=== PATIENT | male | born 1955 | race Caucasian/White ===

== ENCOUNTER 2018-05-23 07:45 | Inpatient (IN) | payer BC ==
--- NOTE | 2018-05-18 17:56 | MH ---
cc: Jose Roman MD DATE OF ADMISSION: 05/23/2018 SCHEDULED ADMISSION: 05/23/2018 PREOPERATIVE DIAGNOSIS: Severe osteoarthritis, left knee. HISTORY OF PRESENT ILLNESS: The patient is a 62-year-old white male who has experienced at least a year history of pain involving his left knee. He had noted the gradual onset of his symptoms unrelated to injury or unusual activity. He previously was seen by his primary care physician, Dr. Natasha Mondragon, who completed x-ray studies which identified an arthritic condition involving his left knee and, at that time, the patient did conformed to conservative management, which included taking Tylenol and ice application. He apparently was discouraged initially from utilizing any anti-inflammatory medication based upon abnormal lab studies reflecting his kidney function, as well as an elevated potassium. He had been aware of generalized swelling about his left knee with frequent a clicking sensation when he presented to the office in May of this past year. At that time, x-ray studies revealed obvious degenerative changes with [id number] apposition about the medial compartment associated with a varus deformity of approximately 15 degrees magnitude. Findings and treatment options were reviewed with the patient at that time. The pros and cons of continued conservative management versus operative intervention that would involve a total knee arthroplasty were outlined in detail. Emphasis was made regarding the fact that the decision to proceed with surgery would be left entirely to the patient's discretion. At that time, the patient elected to continue with conservative management utilizing medication as prescribed by his primary care physician, as well as application of Aspercreme versus Biofreeze. He was also prescribed a medial offloading brace and would thereafter follow on an outpatient basis. With the passage of time, the patient became progressively more incapacitated with pain that began to interfere with all weightbearing activities. 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 He returned to the office in more recent followup, indicating he was becoming progressively more incapacitated. 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 His current x-ray studies revealed severe varus deformity about the left knee, measuring almost 30 degrees in magnitude, with [id number] apposition about the medial compartment and secondary involvement of the patellofemoral articulation. Once again, treatment options were reviewed. At that time, the patient felt that he was ready to proceed with surgery as had previously been discussed and in compliance with his wishes, he was scheduled for admission at this time in order that the above be accomplished. PAST MEDICAL HISTORY, HOSPITALIZATIONS AND SURGERIES: Have included lumbar laminectomy and fusion with instrumentation, appendectomy, colonoscopy and medical evaluation for malaise for which apparently no specific diagnosis was ever rendered. The patient's medical illnesses include hypertension, elevated cholesterol. CURRENT MEDICATIONS: He takes an 81 mg aspirin tablet daily, atenolol 50 mg daily, atorvastatin 20 mg at bedtime, Cialis 5 mg daily p.r.n., diclofenac 75 mg daily, diltiazem 120 mg daily, gabapentin 300 mg twice daily, hydralazine 10 mg 3 times daily, a multivitamin tablet daily, Tylenol Extra Strength 2 tablets p.r.n. and vitamin C 500 mg daily. He has also used Voltaren gel on a regular basis and fish oil. ALLERGIES: THE PATIENT INDICATES A DRUG ALLERGY TO SULFA, WHICH HAS BEEN ASSOCIATED WITH RASH FORMATION. REVIEW OF SYSTEMS: He does wear glasses. Denies headaches, seizure or syncope. No sinus congestion or epistaxis. Auditory acuity intact. No tinnitus. No bleeding gums or dysphagia. Denies cough, shortness of breath, upper respiratory infection, pneumonia or tuberculosis. There is a positive history of sleep apnea for which he does utilize CPAP. No angina or heart disease. Appetite is good. Bowel movements are regular. No hepatitis, gallbladder disease, ulcers or hemorrhoids. He had a urinary tract infection as a youngster with no sequelae. No prostate disease. No history of fractures. No psychiatric illness. His remaining review of systems is unremarkable and noncontributory. FAMILY HISTORY: The patient has been 39 years. His is 60 years of age and described as being in good health. One son and 1 daughter indicated to be in good health. FAMILY HISTORY: Otherwise unremarkable. 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 He completed a college education. He denies active use of tobacco for the past 2 years, but had been an intermittent smoker of both cigarettes and cigars for the previous 10-20 years. Beer consumption primarily limited to the weekend. PHYSICAL EXAMINATION: VITAL SIGNS: Height 5 feet 10 inches, weight 269 pounds. GENERAL: This is an alert, oriented, responsive 62-year-old white male, sitting quietly upon the examination table with no obvious distress. HEAD, EARS, EYES, NOSE AND THROAT: Pupils are equally round and reactive to light. Extraocular movements full. Sclerae clear. External nares clear. External auditory canals clear. Dental intact. Mucous membranes pink and moist. Pharynx clear. NECK: Supple. Active range of motion, with no appreciable pain. Carotid pulse is palpable bilaterally. Trachea midline. Thyroid without thyroid enlargement. LUNGS: Clear to auscultation and percussion. BACK: No CVA tenderness. No discomfort throughout the dorsal lumbar spine. HEART: Regular rate and rhythm. No murmur or gallop. ABDOMEN: Soft, nontender, bowel sounds present. RECTAL: Per primary care physician. EXTREMITIES: Left knee, pronounced varus deformity with medial joint line tenderness. Apprehension and compression sign are negative. A 10-110 degree range of motion with pain at the extremes of mobility. No significant crepitation. Trace collateral ligamentous laxity. Genna test and drawer sign negative. Pivot shift and Marko sign positive for medial compartment pain. Straight leg raising unremarkable at 80 degrees. Satisfactory mobility of the left hip with no associated pain. Pronounced antalgic gait. NEUROLOGIC: Cranial nerves 2-12 grossly intact. IMPRESSION: Severe osteoarthritis of the left knee with pronounced varus deformity. PLAN: Left total knee arthroplasty: The nature of the planned surgical procedure, the potential complications and risks associated, the expectations of surgery and a consent form were thoroughly reviewed with the patient in the presence of his prior to admission to the hospital. Carson has indicated his full understanding regarding all of the above and given consent to proceed with treatment as outlined. Medical evaluation and clearance for surgery completed preoperatively by his primary care physician, Dr. Natasha Mondragon. Cardiology clearance per Dr. Limon. MD TOMASZ Fowler/SERJIO , 05:27 PM , 05:55 PM
[~2018-05-23] VITALS: Ht 175.3 cm; Wt 120.2 kg
[~2018-05-23 07:45] MED LIST: ARTH650T6 PO; ASPI1TAB57 PO; ATEN1TAB74 PO; ATOR20TA15 PO; DICL75TA PO; DILT120C50 PO; GABA300C5 PO; GETGO ROLLING W1 MI1; HYDR-3798 PO; MULT1TAB46 PO; OMEG100046 PO; VITA500T83 PO
[2018-05-23] MEDS ORDERED: ceFAZolin INJ 1,000 MG VIAL ONE (08:17)
[2018-05-23] MEDS ORDERED: ceFAZolin 2 GM PREMIX 50 ML ONE (08:17)
[2018-05-23] MEDS ORDERED: ACETAMINOPHEN 1000 MG/100 ML 100 ML IV ONE ×2 (08:31→08:45)
[2018-05-23] MEDS ORDERED: LIDOCAINE HCL 1% PF 5 ML AMPULE ONE (08:42)
[2018-05-23] MEDS ORDERED: BUPIVACAINE HCL PF 0.25% 30 ML VIAL ONE (08:42)
[2018-05-23] MEDS ORDERED: BUPIVACAINE LIPOSOME PF 1.3% 20 ML VIAL ONE (08:42)
[2018-05-23] MEDS ORDERED: MIDAZOLAM HCL 2 MG/2 ML VIAL ONE ×2 (08:43→09:26)
[2018-05-23] MEDS ORDERED: INSULIN HUMAN REGULAR 1,000 UNITS/10 ML VIAL SQ PRN (08:45)
[2018-05-23] MEDS ORDERED: ROPIVACAINE PERI-ARTICULAR INJECTION. P-ARTICULR SCH ×5 (08:45)
[2018-05-23] MEDS ORDERED: LACTATED RINGER'S 1000 ML IV PRN (08:45)
[2018-05-23] MEDS ORDERED: METOPROLOL TARTRATE 25 MG TAB PO PRN (08:45)
[2018-05-23] MEDS ORDERED: ceFAZolin 2 GM PREMIX 50 ML IV SCH (08:45)
[2018-05-23] MEDS ORDERED: SODIUM CHLORID 0.9% 500 ML IV PRN (08:45)
[2018-05-23] MEDS ORDERED: TRANEXAMIC ACID 1 GM PRIOR TO PROCEDURE IV SCH ×2 (08:45)
[2018-05-23] MEDS ORDERED: CHLORHEXIDINE GLUCONATE 2 % 1 PACK (2 CLOTHS) TOPICAL PRN (08:45)
[2018-05-23] MEDS ORDERED: POVIDONE IODINE 5% (ANTISEPSIS KIT) 4 APPLICATIONS EACH NARE PRN (08:45)
[2018-05-23] MEDS ORDERED: POVIDONE IODINE 7.5% SCRUB 118 ML BOTTLE TOPICAL SCH (08:45)
[2018-05-23] MEDS ORDERED: TRANEXAMIC ACID 1 GM POST-OP IV SCH ×2 (09:00)
[2018-05-23] MEDS ORDERED: [UNRECOGNIZED DRUG - OTHER] P-ARTICULR SCH (09:00)
[2018-05-23] MEDS ORDERED: KETOROLAC P-ARTICULR SCH (09:00)
[2018-05-23] MEDS ORDERED: EPINEPHRINE IV SCH ×6 (09:00→11:00)
[2018-05-23] MEDS ORDERED: SODIUM CHLORIDE 0.9% IV SCH (09:00)
[2018-05-23] MEDS ORDERED: ROPIVACAINE 0.5% P-ARTICULR SCH (09:00)
[2018-05-23] MEDS ORDERED: CLONIDINE P-ARTICULR SCH (09:00)
[2018-05-23 09:15] VITALS: PULSE 52
[2018-05-23] MEDS ORDERED: ACETAMINOPHEN 1000 MG/100 ML 0 ML IV ONE (09:26)
[2018-05-23] MEDS ORDERED: FAMOTIDINE 20 MG/2 ML VIAL ONE (09:26)
[2018-05-23] MEDS ORDERED: HYDROmorphone HCL PF 2 MG/ML VIAL ONE (09:27)
[2018-05-23] MEDS ORDERED: KETOROLAC OTHER SCH ×5 (11:00)
[2018-05-23] MEDS ORDERED: CLONIDINE OTHER SCH ×5 (11:00)
[2018-05-23] MEDS ORDERED: EPINEPHRINE OTHER SCH ×5 (11:00)
[2018-05-23] MEDS ORDERED: KETOROLAC IV SCH ×5 (11:00)
[2018-05-23] MEDS ORDERED: [UNRECOGNIZED DRUG - OTHER] IV SCH ×5 (11:00)
[2018-05-23] MEDS ORDERED: CLONIDINE IV SCH ×5 (11:00)
[2018-05-23] MEDS ORDERED: [UNRECOGNIZED DRUG - OTHER] OTHER SCH ×5 (11:00)
[2018-05-23] MEDS ORDERED: KETOROLAC TROMETHAMINE 30 MG/ML (IVP) VIAL IV PUSH ONE (12:00)
[2018-05-23] MEDS ORDERED: GLYCOPYRROLATE 1 MG/5 ML SYRINGE IV PUSH ONE (12:00)
[2018-05-23] MEDS ORDERED: LACTATED RINGER'S 1000 ML INJ 1,000 ML IV ONE (12:00)
[2018-05-23] MEDS ORDERED: ROCURONIUM INJ 50 MG/5 ML SYRINGE IV PUSH ONE (12:00)
[2018-05-23] MEDS ORDERED: PROPOFOL 200 MG/20 ML AMP IV ONE (12:00)
[2018-05-23] MEDS ORDERED: ePHEDrine/NS 25 MG/5 ML SYRINGE IV ONE (12:00)
[2018-05-23] MEDS ORDERED: NEOSTIGMINE 5 MG/5 ML SYRINGE IV PUSH ONE (12:00)
[2018-05-23] MEDS ORDERED: LIDOCAINE HCL 1% PF 5 ML SYRINGE OTHER ONE (12:00)
[2018-05-23] MEDS ORDERED: DEXAMETHASONE SOD PHOS 4 MG/ML VIAL IV ONE (12:00)
[2018-05-23] MEDS ORDERED: ONDANSETRON HCL 4 MG/2 ML VIAL IV ONE (12:00)
[2018-05-23] MEDS ORDERED: *morphine SULFATE 4 MG/ML PERIprocedure ONLY ONE ×2 (12:51→12:59)
[2018-05-23] MEDS ORDERED: Post-op Orders (for Pharmacy) XX ONE (13:00)
[2018-05-23] MEDS ORDERED: NALOXONE HCL 0.4 MG/ML AMP IV PUSH PRN (13:00)
[2018-05-23] MEDS ORDERED: ONDANSETRON HCL 4 MG/2 ML VIAL IVP PRN (13:00)
[2018-05-23] MEDS ORDERED: ACETAMINOPHEN/HYDROcodone 325 MG/5 MG TAB PO PRN (13:00)
[2018-05-23] MEDS ORDERED: DOCUSATE SODIUM 100 MG CAP PO PRN (13:00)
[2018-05-23] MEDS ORDERED: diphenhydrAMINE HCL 25 MG CAP PO PRN (13:00)
[2018-05-23] MEDS ORDERED: MORPHINE SULFATE 30 MG/30 ML PCA IV SCH (13:00)
[2018-05-23] MEDS ORDERED: ACETAMINOPHEN 325 MG TAB PO PRN (13:00)
[2018-05-23] MEDS ORDERED: TRANEXAMIC ACID INJ 1,000 MG in SODIUM CHLORIDE 0.9% INJ 100 ML IV SCH (13:00)
--- NOTE | 2018-05-23 13:03 | HHI.FF ---
Face to Face Verification Diagnosis: (1) DJD (degenerative joint disease) of knee Physical Therapy Gait training Knee: Total knee, Protocol: Left, Full weight bearing Left LE Weight Bearing: WB as tolerated Left LE Range of Motion: Active ROM Nursing Dressing Changes: Daily dressing change I have seen patient Carson Chaney on 05/23/18. My clinical findings support the need for the requested home health care services because: Limited ability to care for self High risk of falls I certify that my clinical findings support that this patient is homebound because: Post-op weakness Unsteady gait/balance Unsafe to leave home unassisted Jose Roman MD May 23, 2018 13:03
[2018-05-23] MEDS: DEXT 5%-NACL 0.45% 1000 ML INJ 1,000 ML IV SCH ×2 (13:30→20:49)
--- NOTE | 2018-05-23 13:31 | MP ---
cc: Jose Roman MD DATE OF OPERATION: PREOPERATIVE DIAGNOSIS: Severe osteoarthritis of the left knee with varus deformity. POSTOPERATIVE DIAGNOSIS: Severe osteoarthritis of the left knee with varus deformity. PROCEDURE PERFORMED: Left total knee arthroplasty. SURGEON: Jose Roman MD ANESTHESIA: General endotracheal. INDICATIONS: This is a 62-year-old white male with greater than 1-year history of pain involving his left knee. He had noted the gradual onset of his symptoms unrelated to injury or unusual activity. He had undergone previous evaluation with his primary care physician, Dr. Natasha Mondragon, who completed x-ray studies which did identify an arthritic involvement about the left knee. At that time, the patient conformed to conservative management, which included taking Tylenol and ice application. He was discouraged from utilizing anti-inflammatory medication based upon abnormal lab studies reflecting kidney function associated with elevated potassium. He has been aware of generalized swelling about his left knee with frequent clicking sensation when he presented to the office in May of this past year. At that time, his x-ray studies revealed obvious degenerative changes with [id number] apposition about the medial compartment, associated with a varus deformity of at least 15 degrees magnitude. Findings and treatment options were reviewed with the patient at that time. The pros and cons of continuing with conservative management versus operative intervention that would involve total knee arthroplasty were outlined. Emphasis was made regarding the fact that the decision to proceed with surgery would be left entirely to the patient's discretion. At that time, the patient elected to continue with conservative management utilizing medication as prescribed by his primary care physician, as well as applying Aspercreme and Biofreeze. He was prescribed a medial offloading brace and was thereafter followed on an outpatient basis. With the passage of time, he became progressively more incapacitated with pain that began to interfere with all weightbearing activities. 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 He returned to the office in more recent followup indicating he was becoming progressively more incapacitated in spite of wearing his medial offloading brace on a retort setter basis. He was experiencing considerable pain and limitations with all weightbearing activities. His current x-ray studies revealed severe varus deformity about the left knee of almost 30 degrees magnitude with ehnn-fz-[id number] apposition about the medial compartment and secondary involvement of the patellofemoral articulation. Once again, treatment options were reviewed. At that time, the patient felt that he was ready to proceed with surgery as had previously been discussed and in compliance with his wishes, he was scheduled for admission at this time in order that total knee replacement be completed. FORMAT: Following induction of satisfactory general anesthesia by endotracheal intubation as completed per the Department of Anesthesia, a tourniquet was established around the proximal portion of the left lower extremity. The extremity proper was isolated with a U-drape, thereafter being prepped with Betadine solution and draped into a sterile field in the routine manner. Prior to initiation of the actual procedure, the standard timeout protocol was completed. All parameters were appropriately addressed and confirmed by operating room personnel. The extremity was elevated for approximately 1 minute and the tourniquet was inflated to 250 mmHg pressure. A sharp skin incision was initiated midline over the anterior aspect of the knee and developed through underlying subcutaneous tissue with hemostasis maintained by electrocautery. By deepening dissection, the anterior capsule was exposed, a medial capsulotomy completed and the patella subluxed in a lateral orientation. Examination of the joint space revealed significant degenerative changes of a tricompartmental nature, being most pronounced about the medial compartment where there was complete erosion of articular cartilage and subchondral bone exposed. There was absence of the anterior cruciate ligament. Medial and lateral meniscus structures were sharply incised and a partial synovectomy of reactive synovium was accomplished. The articular surface of the patella was resected with power saw and the 3 holed guide was utilized for establishing post-holes. A centering hole was placed in the distal aspect of the femur, allowing positioning of the intramedullary guide. The distal femoral cutting jig was attached and the distal femur resected. AP measurement noted 72.5 mm sizing to be appropriate. The matching cutting block was positioned and the anterior, posterior and chamfer cuts were completed. The tibial plateau was thereafter subluxed in an anterior orientation. Examination at that time revealed a prominent subchondral cyst within the posterior mid region of the tibial plateau. A secondary cyst was identified about the lateral femoral condyle. The cysts were curetted of reactive soft tissue. The extramedullary guide was positioned about the tibia and thereafter, the tibial plateau was resected and measured with 79 mm sizing to be appropriate. There was a limited residual defect medially of less than 5 mm height consistent with the preoperative varus deformity. It was felt that this defect could be satisfactorily contained with bone cement as opposed to utilizing an augment implant that would require additional bony resection. A trial reduction followed utilizing a 72.5 mm anatomic femoral component, a 79 mm tibial base with both 10 and 12 mm bearing inserts trialed. The 12 mm thickness was determined to be the more favorable fit. The knee was readily brought to full extension. There was no laxity to varus and valgus stress at both 0 and 90 degrees flexed posture. Orientation was confirmed as appropriate with measurement of the pelvic guide through the mechanical access of the knee. A trial reduction followed utilizing a 37 mm standard patellar button. Once again good tracking was noted with no tendency towards subluxation. All trial components were thereafter removed. Cancellous bone was harvested from the previously resected bony segments and used to fill defects within the tibial plateau, as well as the lateral femoral condyle. The wound was thereafter copiously irrigated with pulsating antibiotic solution. An autogenous bone plug was inserted into the distal femoral guide hole and thereafter a preparation of [place] bone cement was utilized in inserting knee components in a sequential fashion, which included a 79 mm fixed cruciate tibial plate, to which, a 12 mm Vanguard tibial bearing insert was secured with locking canales. The 72.5 mm Vanguard femoral component was firmly seated onto the distal femur, excess cement being removed, the knee was brought to full extension and thereafter, the 37 mm standard 3 post-patellar button was attached and maintained in place with patellar clamp while cement hardening was completed. Final range of motion assessment noted good tracking stability throughout the knee. Irrigation was repeated with hemostasis maintained. Autovac drain tubes were inserted through superior stab wounds. The capsule was repaired with 0 Vicryl suture. The remaining portion of the wound was closed in layers in the routine manner, skin margins being reapproximated with a running subcuticular 3-0 Vicryl suture over which Steri-Strips were applied. The tourniquet was deflated after 82 minutes of tourniquet time. The extremity was thereafter supported in a canvas knee splint. Anesthesia was discontinued and he was thereafter transferred to a hospital bed and returned to the recovery room in satisfactory condition, having tolerated his operative procedure well. Estimated blood loss was approximately 100 mL, as determined per anesthesia. All implants were of the [employer] transportation coordinator. MD TOMASZ Fowler/TL , 12:56 PM , 01:30 PM
--- NOTE | 2018-05-23 13:34 | RADRPT ---
EXAM DATE: 05/23/2018 1:27 PM EDT AGE/SEX: 62 years / Male INDICATIONS: Post op left total knee replacement. CLINICAL DATA: This is the patient's initial encounter. Patient reports that signs and symptoms have been present for 1 day and indicates a pain score of Nonresponsive. MEDICAL/SURGICAL HISTORY: Non-responsive. Non-responsive. COMPARISON: No prior exams available for comparison. FINDINGS: Left knee arthroplasty components are in good position. No acute fracture. Alignment is maintained. I mmediate postsurgical soft tissue features with drain in place. CONCLUSION: 1. Status post left knee arthroplasty in good position without significant acute fracture. Electronically signed by: Benji Guzmán MD 05/23/2018 1:33 PM EDT
[2018-05-23] MEDS ORDERED: PHARMACY INFORMATION XX SCH (14:00)
[2018-05-23] MEDS: PCA - TOTAL MG MORPHINE DELIVERED PER SHIFT SCH ×2 (14:00→20:47)
[2018-05-23 16:00] VITALS: BP 137/63; PULSE 71; RESP 18; TEMP 97.9; O2SAT 95
--- NOTE | 2018-05-23 18:00 | PD.CONS ---
[facility] By Primary Care Physician Natasha Mondragon M.D. Diagnoses: History of Present Illness 62-year-old male with a history of hypertension, hyperlipidemia, who is currently postoperative day 0 from elective left total knee arthroplasty. Patient reports left knee pain continues. Denies any chest pain, shortness of breath, lightheadedness, dizziness. Denies any difficulty urinating in the past. Reports feeling fine prior to admission. Patient is on diltiazem and atenolol as outpatient, however denies any cardiac history. Per admission H&P, patient underwent cardiology clearance. Review of Systems Except as stated in HPI: all other systems reviewed are Neg Past Family Social History Allergies: Coded Allergies: Sulfa (Sulfonamide Antibiotics) (Unverified Allergy, Mild, rash, hives, ) Past Medical History Hypertension Hyperlipidemia Chronic pain Suspected tachycardia syndrome based on medications, however patient denies any history of heart problem. Past Surgical History Lumbar laminectomy with fusion. Appendectomy Colonoscopy Reported Medications Reported Meds & Active Scripts Active Reported Aspirin 81 (Aspirin) 81 Mg Tabdr 81 Mg PO DAILY Fish Oil 1,000 mg Softgel ([place]-3/Dha/Epa/Fish Oil) 1,000 Mg (120 Mg-180 Mg) Capsule 1 Cap PO DAILY Arthritis Pain Reliever ER 8 HR (Acetaminophen) 650 Mg Tab 650 Mg PO Q8HR PRN Multi Vitamin Daily (Multiple Vitamin) 1 Tab Tab 1 Tab PO DAILY Vitamin C ER (Ascorbic Acid) 500 Mg Gisela 500 Mg PO DAILY Diclofenac Sodium DR (Diclofenac Sodium) 75 Mg Tabdr 75 Mg PO DAILY Gabapentin 300 Mg Cap 300 Mg PO BID Diltiazem CD 24 HR 120 Mg Caper 120 Mg PO DAILY Hydralazine HCl 10 Mg Tablet 10 Mg PO TID Atorvastatin (Atorvastatin Calcium) 20 Mg Tab 20 Mg PO DAILY Tenormin (Atenolol) 50 Mg Tab 50 Mg PO DAILY Family History Patient reports mother with history of esophageal cancer. Father's medical history is unknown Social History Non-smoker. Patient reports drinking about twice per week occasionally. Denies any alcohol withdrawal. Denies any illicit drugs. Physical Exam Vital Signs Vital Signs Date Time Temp Pulse Resp B/P (MAP) Pulse Ox O2 Delivery O2 Flow Rate FiO2 05/23/18 16:00 97.9 71 18 137/63 (87) 95 05/23/18 15:00 58 12 140/65 (90) 95 Nasal Cannula 3 05/23/18 13:45 97.7 60 12 138/73 (94) 95 Nasal Cannula 3 05/23/18 13:30 55 12 143/69 (93) 94 Nasal Cannula 3 05/23/18 13:30 14 05/23/18 13:15 56 14 141/69 (93) 95 Nasal Cannula 3 05/23/18 13:00 58 12 141/66 (91) 95 Nasal Cannula 2 05/23/18 12:45 97.9 64 12 147/67 (93) 96 Simple Mask 6 05/23/18 09:15 100 Nasal Cannula 2 05/23/18 09:15 52 05/23/18 08:35 99.2 58 20 153/75 (101) 97 Physical Exam GENERAL: This is a well-nourished, well-developed patient, in no apparent distress. SKIN: No rashes, ecchymoses or lesions. Cool and dry. HEAD: Atraumatic. Normocephalic. No temporal or scalp tenderness. EYES: Pupils equal round and reactive. Extraocular motions intact. No scleral icterus. No injection or drainage. ENT: Nose without bleeding, purulent drainage or septal hematoma. Throat without erythema, tonsillar hypertrophy or exudate. Uvula midline. Airway patent. NECK: Trachea midline. No JVD or lymphadenopathy. Supple, nontender, no meningeal signs. CARDIOVASCULAR: Regular rate and rhythm without murmurs, gallops, or rubs. RESPIRATORY: Clear to auscultation. Breath sounds equal bilaterally. No wheezes , rales, or rhonchi. GASTROINTESTINAL: Abdomen soft, non-tender, nondistended. No hepato-splenomegaly , or palpable masses. No guarding. MUSCULOSKELETAL: Extremities without clubbing, cyanosis, or edema. No joint tenderness, effusion, or edema noted. No calf tenderness. Negative Homans sign bilaterally. NEUROLOGICAL: Awake and alert. Cranial nerves II through XII intact. Motor and sensory grossly within normal limits. Five out of 5 muscle strength in all muscle groups. Normal speech. Assessment and Plan Assessment and Plan //Postoperative day 0 elective left total knee arthroplasty. -Postoperative management as per surgical service = Aspirin for DVT prophylaxis //Hypertension. Blood pressure acceptable. Continue home pressure medications. As needed Vasotec. Continue to monitor = We will order baseline EKG. //Hyperlipidemia. Chronic. //Chronic pain. Continue low-dose gabapentin. Discussed Condition With Patient, nurse, orthopedic surgeon. Jimmy Acevedo MD May 23, 2018 18:00
[2018-05-23 20:29] VITALS: BP 128/65; PULSE 66; RESP 22; TEMP 97.7; O2SAT 94
[2018-05-23] MEDS: GABAPENTIN 300 MG CAP PO SCH (20:46)
[2018-05-23] MEDS: hydrALAZINE HCL 10 MG TAB PO SCH (20:47)
[2018-05-23] MEDS ORDERED: ZOLPIDEM TARTRATE 5 MG TAB PO PRN (21:00)
[2018-05-24 01:17] VITALS: BP 125/60; PULSE 57; RESP 16; TEMP 98.1
[2018-05-24] MEDS: DEXT 5%-NACL 0.45% 1000 ML INJ 1,000 ML IV SCH ×3 (04:58→20:58)
[2018-05-24] MEDS: PCA - TOTAL MG MORPHINE DELIVERED PER SHIFT SCH ×3 (05:03→22:00)
[2018-05-24 05:22] LABS: HEMATOCRIT 32.2 % (39.0-51.0)
[2018-05-24 05:50] LABS: ALBUMIN 3.1 GM/DL (3.4-5.0); BICARBONATE 26.9 MEQ/L (21.0-32.0); CALCIUM 7.9 MG/DL (8.5-10.1); CREATININE 0.99 MG/DL (0.60-1.30); MAGNESIUM 1.9 MG/DL (1.5-2.5); PHOSPHORUS 3.6 MG/DL (2.5-4.9)
[2018-05-24] MEDS ORDERED: ASPI-183 PO (06:28)
[2018-05-24] MEDS ORDERED: HYDR-3516 PO (06:28)
[2018-05-24] MEDS ORDERED: WALKER WHEELS/F1 MIS (06:29)
[2018-05-24 08:00] VITALS: BP 142/66; PULSE 59; RESP 18; TEMP 97.6; O2SAT 94
--- NOTE | 2018-05-24 09:06 | HHI.PR ---
Subjective Remarks Follow-up visit HTN, HLD, status post left total knee arthroplasty. Patient seen and examined today. Reports he is doing well. States pain is manageable. No acute issues overnight. Denies SOB/ dyspnea. Denies chest pain, palpitations, headaches, dizziness. Denies fevers, chills, n/v/d. Denies dysuria. Objective Vitals Vital Signs Date Time Temp Pulse Resp B/P (MAP) Pulse Ox O2 Delivery O2 Flow Rate FiO2 05/24/18 07:15 Nasal Cannula 2.00 05/24/18 05:03 18 05/24/18 01:17 98.1 57 16 125/60 (81) 05/23/18 20:47 18 05/23/18 20:29 97.7 66 22 128/65 (86) 94 05/23/18 16:00 97.9 71 18 137/63 (87) 95 05/23/18 15:00 58 12 140/65 (90) 95 Nasal Cannula 3 05/23/18 13:45 97.7 60 12 138/73 (94) 95 Nasal Cannula 3 05/23/18 13:30 55 12 143/69 (93) 94 Nasal Cannula 3 05/23/18 13:30 14 05/23/18 13:15 56 14 141/69 (93) 95 Nasal Cannula 3 05/23/18 13:00 58 12 141/66 (91) 95 Nasal Cannula 2 05/23/18 12:45 97.9 64 12 147/67 (93) 96 Simple Mask 6 05/23/18 09:15 100 Nasal Cannula 2 05/23/18 09:15 52 I/O 05/23/18 05/23/18 05/23/18 05/24/18 05/24/18 05/24/18 07:00 15:00 23:00 07:00 15:00 23:00 Intake Total 1700 ml 100 ml 2063 ml Output Total 100 ml 150 ml 340 ml Balance 1600 ml -50 ml 1723 ml Intake IV Total 100 ml 2063 ml Other 1700 ml Output Urine Total 300 ml Drainage Total 150 ml 40 ml Estimated Blood Loss 100 ml Result Diagram: 05/24/186 05/24/18 0446 Imaging Last Impressions Knee X-Ray 05/23/18 1258 Signed Impressions: CONCLUSION: 1. Status post left knee arthroplasty in good position without significant acu te fracture. Objective Remarks GENERAL: This is a well-nourished, well-developed patient, in no apparent distress. SKIN: Warm and dry. HEENT: Normocephalic. Pupils equal round and reactive. Nose without bleeding. Airway patent. NECK: Trachea midline. No JVD. Supple. CARDIOVASCULAR: Regular rate and rhythm without murmurs, gallops, or rubs. RESPIRATORY: Clear to auscultation. Breath sounds equal bilaterally. No wheezes , rales, or rhonchi. GASTROINTESTINAL: Abdomen soft, non-tender, protuberant. Bowel Sounds normoactive x4. MUSCULOSKELETAL: Extremities without clubbing, cyanosis. Left lower extremity trace edema, Hemovac in place scant sanguinous NEUROLOGICAL: Awake and alert. Oriented to time, place, person. No focal neuro deficit. Moves all extremities. Normal speech. Procedures Status post left total knee arthroplasty A/P Assessment and Plan Patient is a 62-year-old male with history of hypertension, hyperlipidemia who came into the hospital for an elective left total knee arthroplasty Status post left total knee arthroplasty by Dr. Roman -Orthopedic surgeon following -Pain management with bowel regimen -Physical therapy eval and treat Hypertension, fairly controlled Hyperlipidemia -Continue atorvastatin, atenolol 50 mg daily, hydralazine 10 mg 3 times daily -Monitor BP trend. Chronic pain. -Continue low-dose gabapentin. DVT prop aspirin 325 mg twice daily, per Ortho Stable from Hospitalist standpoint. We will sign off. Reconsult as needed. Hospitalist clear for discharge Discharge Planning Plan to discharge home with home health care when cleared by orthopedic surgeon Luis Conti May 24, 2018 9:06 am
[2018-05-24] MEDS: ATENOLOL 50 MG TAB PO SCH (09:47)
[2018-05-24] MEDS: hydrALAZINE HCL 10 MG TAB PO SCH ×3 (09:47→18:25)
[2018-05-24] MEDS: ATORVASTATIN 20 MG TAB PO SCH (09:47)
[2018-05-24] MEDS: GABAPENTIN 300 MG CAP PO SCH ×2 (09:47→21:04)
[2018-05-24] MEDS: DILTIAZEM-CD 120 MG CAP ER PO SCH (09:47)
[2018-05-24 12:00] VITALS: BP 150/70; PULSE 64; RESP 18; TEMP 98.5; O2SAT 95
[2018-05-24] MEDS: ACETAMINOPHEN/HYDROcodone 325 MG/5 MG TAB PO PRN ×3 (12:17→21:04)
[2018-05-24] MEDS ORDERED: RIVAROXABAN 10 MG TAB PO SCH (13:00)
[2018-05-24 16:00] VITALS: BP 159/73; PULSE 58; RESP 18; TEMP 98.1; O2SAT 96
[2018-05-24 20:00] VITALS: BP 172/77; PULSE 60; RESP 17; TEMP 97.9; O2SAT 97
--- NOTE | 2018-05-24 20:51 | EKG ---
Date Performed: 05/23/2018 Time Performed: 20:14:10 PTAGE: 62 years EKG: Sinus rhythm BORDERLINE LEFT AXIS DEVIATION BORDERLINE ECG NO PREVIOUS TRACING DOCTOR: Avery Almanzar Interpretating Date/Time 05/24/2018 20:50:08
[2018-05-24 20:52] VITALS: O2SAT 100
[2018-05-24] MEDS: ASPIRIN 325 MG TAB PO SCH (21:04)
[2018-05-25 00:01] VITALS: BP 148/70; PULSE 55; RESP 17; TEMP 98.2; O2SAT 94
[2018-05-25] MEDS: ACETAMINOPHEN/HYDROcodone 325 MG/5 MG TAB PO PRN ×2 (04:24→09:40)
[2018-05-25] MEDS: DEXT 5%-NACL 0.45% 1000 ML INJ 1,000 ML IV SCH (04:58)
[2018-05-25] MEDS: PCA - TOTAL MG MORPHINE DELIVERED PER SHIFT SCH (06:00)
--- NOTE | 2018-05-25 06:52 | MD ---
cc: Jose Roman MD, Hezi MD DATE OF DISCHARGE: 05/25/2018 ADMITTING DIAGNOSIS: Severe osteoarthritis of the left knee. DISCHARGE DIAGNOSIS: Severe osteoarthritis of the left knee. HISTORY: A 62-year-old white male with more than a 1-year history of pain involving his left knee. He had noted the gradual onset of his symptoms unrelated to injury or unusual activity. He had undergone previous evaluation with his primary care physician, Dr. Natasha Mondragon who completed x-ray studies which identified an arthritic condition and at that time, the patient did conformed to conservative management, which included taking Tylenol and ice application. He was discouraged from initially utilizing any anti-inflammatory medication based upon abnormal lab studies reflecting his kidney function, as well as an elevated potassium level. He had been aware of generalized swelling about his knee with a frequent clicking sensation and when he presented to the office in May of this past year, his x-ray studies revealed obvious degenerative changes with [id number] apposition about the medial compartment, associated with a varus deformity of at least 15 degrees magnitude. Findings and treatment options were reviewed. The pros and cons of continuing with conservative management versus operative intervention that would involve total knee arthroplasty were outlined. Emphasis was made regarding the fact that the decision to proceed with surgery would be left entirely to the patient's discretion. The patient initially elected to conform to conservative management utilizing medication as prescribed by his primary care physician, as well as applying Aspercreme and Biofreeze. He was also prescribed a medial offloading brace and was followed on an outpatient basis thereafter. With the passage of time, he became progressively more incapacitated with pain that began to interfere with all weightbearing activities. 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 He returned to the office in a more recent followup indicating that he was becoming progressively more incapacitated. 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 His current x-ray studies revealed severe varus deformity about the left knee measuring almost 30 degrees magnitude with [id number] apposition about the medial compartment and secondary involvement of the patellofemoral articulation. Once again, treatment options were reviewed and at that time, the patient felt that he was ready to proceed with surgery as had previously been discussed. In compliance with his wishes, he was scheduled for admission in order that the above be accomplished. Physical examination at the time of admission revealed a pronounced varus deformity with medial joint line tenderness. Apprehension and compression sign negative 10-110 degree range of motion with pain at the extremes of mobility. No crepitation. Trace collateral ligamentous laxity. Genna test and drawer sign negative. Pivot shift and Marko sign positive for medial compartment pain. Straight leg raising unremarkable at 80 degrees. Satisfactory mobility of the left hip with no associated pain, pronounced antalgic gait. HOSPITAL COURSE: Prior to admission to the hospital, the patient had undergone medical evaluation and clearance for surgery as completed by his primary care physician, Dr. Natasha Mondragon. He was taken to the operating room on 23 May 2018 and on that date underwent a left total knee arthroplasty completed in an uncomplicated manner. The patient was noted to have tolerated his operative procedure well, his postoperative course, stable thereafter. Hemoglobin and hematocrit assessment on the first postoperative day was 11 and 32.2 respectively. The patient was progressively mobilized under the guidance of physical therapy being permitted weightbearing to tolerance about the left lower extremity. Followup examination of his surgical wound noted to be intact, healing favorably with no evidence of infection. Medical followup per the hospitalist service. DVT prophylaxis initiated. Waxing Machine Operator consulted to assist with discharge planning. The patient had expressed his desire to be discharged home and continue his rehabilitation on an outpatient basis. Plans were finalized in this regard and pending medical clearance, he was scheduled for discharge on the second postoperative day, at which time he was noted to be making favorable progress with regard to his rehabilitation program. He was scheduled to be seen in office followup in approximately 4 weeks. His condition at that time was stable and prognosis favorable. DISCHARGE MEDICATIONS: Include: Hydrocodone 5/325, #40, aspirin 325 mg 1 tab twice daily for 3 weeks, #40. Jose Roman MD NBS/DL , 06:28 AM , 06:50 AM
[2018-05-25 08:00] VITALS: BP 166/78; PULSE 62; RESP 17; TEMP 97.7; O2SAT 98
[2018-05-25] MEDS: ASPIRIN 325 MG TAB PO SCH (09:39)
[2018-05-25] MEDS: GABAPENTIN 300 MG CAP PO SCH (09:39)
[2018-05-25] MEDS: DILTIAZEM-CD 120 MG CAP ER PO SCH (09:39)
[2018-05-25] MEDS: hydrALAZINE HCL 10 MG TAB PO SCH (09:39)
[2018-05-25] MEDS: ATORVASTATIN 20 MG TAB PO SCH (09:39)
[2018-05-25] MEDS: ATENOLOL 50 MG TAB PO SCH (09:39)
== END 2018-05-25 11:39 | disposition home health service (06) | DRG 470 ==
LOC: HSDI 07:45 → N06B 15:54
PROVIDERS: ADMIT Orthopaedic Surgery; ATTEND Orthopaedic Surgery
PROC: 0SRD0J9 Replacement of Left Knee Joint with Synthetic Substitute, Cemented, Open Approach (ICD-10-PCS; principal; 2018-05-23 09:47)
DX: M17.12 Unilateral primary osteoarthritis, left knee (principal); M21.162 Varus deformity, not elsewhere classified, left knee; I10 Essential (primary) hypertension; E78.5 Hyperlipidemia, unspecified; G89.29 Other chronic pain; Z79.82 Long term (current) use of aspirin; Z87.891 Personal history of nicotine dependence; Z88.2 Allergy status to sulfonamides
CPT/HCPCS: 73560; 80069; 83735; 85014; 85018; 86850; 86900; 86901; 88305; 88311; 93005; 94150; C1776; C9290; J0131; J0690; J0735; J1100; J1170; J1885; J2250; J2270; J2405; J2710; J2795; J3010; J7120; L1830